=== PATIENT | male | born 1955 | race Caucasian/White ===

== ENCOUNTER 2016-07-15 18:40 | Emergency (ER) | payer MEDICARE, OTHER ==
[~2016-07-15] VITALS: Ht 177.8 cm; Wt 81.8 kg
[~2016-07-15 18:40] MED LIST: CLOP75TA14 PO; LISI20TA PO; METO50TA PO; SMV40T PO; [UNRECOGNIZED DRUG - CODE] PO
[2016-07-15 18:47] VITALS: BP 140/92; PULSE 118; RESP 15; O2SAT 95
--- NOTE | 2016-07-15 18:50 | ED.REPORT ---
HPI-General Illness Date of Service Jul 15, 2016 ED Provider: Binh Deluca MD A 61 year old male with a history of MT, CAD s/p stent placement, hypertension and hyperlipidemia presents to the ED complaining of a fever that began 2 weeks ago. Associated symptoms include weakness, fatigue, diaphoresis, chills, bilateral ear pressure, sinus pressure, mild cough, swollen lymphs,neck pain and mild back pain. His symptoms have been intermittent since onset. Patient was seen at Urgent Care earlier this afternoon and was sent to the ED with concern for influenza. He is unsure whether he has lost any weight. He denies any rash, nausea, vomiting, testicular pain, penile discharge or abdominal pain. Patient has chronic headaches and denies any change in baseline. He denies any recent travel and does not recall having been tested for HIV. He denies any previous episodes of jaundice. No prior injection drug use overseas travel or insect bites. Remote history of incarceration. Remote history of head trauma. Nursing Notes Stated Complaint: COLD SYMPTONS Chief Complaint: FLU/Cold Symptoms Nursing Notes Reviewed: Yes Allergies: Coded Allergies: No Known Allergies (Verified , 07/15/16) Scheduled Aspirin (Aspirin) 81 Mg Tablet 81 MG PO DAILY Lisinopril-Expunged Drug, Do Not Renew! (Lisinopril-Expunged Drug, Do Not Renew! ) 20 Mg Tablet 20 MG PO DAILY Metoprolol Tart-Expunged Drug, Do Not Renew! (Metoprolol Tart-Expunged Drug, Do Not Renew!) 50 Mg Tablet 50 MG PO DAILY General Time Seen by MD: 18:48 Chief Complaint Fever Hx Obtained From: Patient Arrived By: Walk-in Sudden in Onset?: No Onset Occurred: More than a week ago... (2 weeks) Symptom Duration: Since onset Severity: Current: No pain currently Associated with: Reports: Cough, Diaphoresis, Fever, Neck pain, Weakness, Denies: Abdominal pain Additional Notes: Swollen lymphs Sinus and ear pressure Pertinent Negative: Pt denies other symptoms Recent Healthcare: No recent hospitalization, Recent doctor visit (Seen at Urgent Care prior to arrival ) Past Medical History Past Medical History Notes: PCP: Romana Gardner MD Past Medical History [place] (2007) Chronic neck and back pain Chronic headaches Reports: Coronary artery disease, Hyperlipidemia, Hypertension Past Surgical History Stent placement Blood transfusion Smoking History Light Tobacco Smoker Social History Drug Use: THC Other Social History: , Local resident Occupation Previous Solar Consultant Currently student at [employer] Ambulatory Status Independent Review of Systems Full Review of Systems Constitutional: Reports: Chills, Fatigue, Fever, Weakness - generalized Ears / Nose / Throat: Reports: Earache bilateral (Ear pressure ), Sinus problem (Sinus pressure ) Respiratory: Reports: Non-productive cough, Denies: Shortness of breath Cardiovascular: Denies: Chest pain GI: Denies: Abdominal pain, Nausea, Vomiting Male: Denies Penile discharge, Denies Testicular pain Musculoskeletal: Reports: Back pain (mild current back pain; chronic ) Neurologic: Reports: Headache (chronic ), Denies: Change LOC Complete sys rev & neg: except as marked. Physical Exam Vital Signs Vital Signs Date Time Temp Pulse Resp B/P Pulse Ox O2 Delivery O2 Flow Rate FiO2 07/15/16 18:47 39.0 118 15 140/92 95 Room Air Initial VS: Reviewed Extremities: Vascular intact, Neuro intact, No swelling, No tenderness Neurologic: Alert, Oriented, Nonfocal Psychiatric: Mood/affect normal, Behavior normal, Normal thought content General/Constitutional: Awake, Alert Head / Eyes: Atraumatic, Normocephalic, PERRL ENT: Atraumatic, Airway patent, Ext aud canal NL Right Ear / Mastoid: Positive: Tympanic memb retracted ENT: Mastoid non tender No tenderness to facial percussion Ear canal non tender Numerous teeth pulled; no active decay Left TM clear Neck: Atraumatic, Supple NECK: Thyroid enlarged Cardiovascular: Heart rate NL, Regular rhythm, Heart sounds NL, No gallop, No murmurs, No rubs CARDIO: No splinter hemorrhages Abdomen: Atraumatic, Soft, Non-tender, BS normoactive Organomegaly / Mass / Hernia: Negative: Hepatomegaly Back: Atraumatic, Inspection NL, No midline vertebral tend, No CVA tenderness Adenopathy: Positive: Anterior cervical bilat, Axillary adenopathy bilat, Inguinal adenopathy bilat Interpretation & Diagnostics CT SINUSES w/o contrast Read by Radiology IMPRESSION: No evidence for acute or chronic sinusitis. Right to left nasal septal deviation. Dictated by: Bin Robert M.D. on 07/15/2016 at 21:04 Lab Results Interpretation Result Diagram: 07/15/16190907/15/161909 Test 07/15/16 19:10 07/15/16 20:21 07/15/16 22:15 White Blood Count 11.2th/mm3 (3.8-10.1) Red Blood Count 4.52mil/mm3 (4.40-5.80) Hemoglobin 13.3g/dL (13.8-17.2) Hematocrit 41.7% (41.0-50.0) Mean Corpuscular Volume 92.3fL (81-100) Mean Corpuscular Hemoglobin 29.4pg (27.0-35.0) Mean Corpuscular Hemoglobin Concent 31.9% (32.0-37.0) Red Cell Distribution Width 12.3% (12.3-15.4) Platelet Count 444bil/L (150-400) Neutrophils (%) (Auto) 69.2% (40-74) Lymphocytes (%) (Auto) 18.0% (14-46) Monocytes (%) (Auto) 12.0% (4-12) Eosinophils (%) (Auto) 0.3% (0-5) Basophils (%) (Auto) 0.2% (0-3) Erythrocyte Sedimentation Rate 66mm/hr (0-30) Sodium Level 137mEq/L (134-144) Potassium Level 4.4mEq/L (3.5-5.2) Chloride Level 95mEq/L (97-108) Carbon Dioxide Level 26mmol/L (18-29) Blood Urea Nitrogen 23mg/dL (8-27) Creatinine 1.27mg/dL (0.76-1.27) Estimat Glomerular Filtration Rate 61mL/min (>59) Glucose Level 129mg/dL (60-99) Calcium Level 10.3mg/dL (8.5-10.1) Magnesium Level 2.0mg/dL (1.6-2.6) Total Bilirubin 0.7mg/dL (0.0-1.2) Aspartate Amino Transf (AST/SGOT) 49U/L (0-50) Alanine Aminotransferase (ALT/SGPT) 59U/L (0-44) Alkaline Phosphatase 95U/L (25-160) C-Reactive Protein 14.3mg/dL (0.0-0.5) Total Protein 8.1g/dL (6.4-8.4) Albumin 3.9g/dL (3.4-5.0) Procalcitonin 0.11ng/mL (0.00-0.08) Thyroid Stimulating Hormone (TSH) 1.860uIU/mL (0.450-4.500) Hold Estrella Top Tube Received (Received) Urine Color Dark yellow (YELLOW) Urine Appearance Clear (CLEAR,HAZY) Urine pH 5.5 (5.0-8.0) Urine Specific Aspen 1.025 (1.003-1.035) Urine Protein Tracemg/dL (NEG,TRACE) Urine Glucose (UA) Negativemg/dL (NEGATIVE) Urine Ketones Tracemg/dL (NEGATIVE) Urine Occult Blood Negative (NEGATIVE) Urine Nitrite Negative (NEGATIVE) Urine Bilirubin Negative (NEGATIVE) Urine Urobilinogen 2.0mg/dL (NORMAL) Urine Leukocyte Esterase Trace (NEGATIVE) Urine RBC 0-2/hpf (0-2) Urine WBC 0-5/hpf (0-5) Urine Epithelial Cells None/hpf (NONE-MOD) Urine Crystals None seen (NONE SEEN) Urine Bacteria Few/hpf (NONE-FEW) Urine Hyaline Casts None/lpf (NONE) Urine Granular Casts None seen (NONE SEEN) Urine Waxy Casts None seen (NONE SEEN) Urine Red Blood Cell Casts None seen (NONE SEEN) Urine White Blood Cell Casts None seen (NONE SEEN) Urine Mucus Present (None Seen) Urine Trichomonas None seen (NONE SEEN) Urine Yeast None (NONE SEEN) Urinalysis Comment None Urine Culture Reflexed Indicated X-Ray Chest Interpretation Chest Xray Interpretation: IMPRESSION: No acute cardiopulmonary disease. Dictated by: Bin Robert M.D. on 07/15/2016 at 18:58 Interpretation / Wet Read by: Interpret - Radiologist CT Head Interpretation IMPRESSION: 1. No acute intracranial abnormalities. 2. Right frontal pole encephalomalacia, consistent with remote traumatic or ischemic insult. 3. Mild periventricular white matter chronic small vessel ischemic change. Dictated by: Bin Robert M.D. on 07/15/2016 at 21:02 Study: Head CT no contrast Interpretation / Wet Read by: Interpret - Radiologist Re-Eval/Medical Decision Time of Eval: 22:40 Patient Status: Condition improved Re-Evaluation/Progress Note: Patient is rechecked. He is informed of his CT results and the intended treatment plan. All of the patient's questions are addresssed. He understands and agrees with the plan to discharge. Consultation : Referral / Consult Name: Mikey Galvan MD Call Returned at: 20:52 Note: Infectious Disease Specialist: Recommends additional labs and clinic follow-up Counseled Regarding: Diagnosis, Lab results, Need for follow-up, When/why to return to ED Discharge & Departure Primary Impression: Fever Fever type: unspecified Qualified Code: R50.9 - Fever, unspecified Disposition: Home Discharge Condition All VS Reviewed: Yes Condition: Stable Patient Instructions: Fever in Adults (ED) Additional Instructions: Emergency Department evaluation included interview, examination, labs including blood cultures and chest x-ray and discussion with an infectious disease specialist. We do not have a source for your fever. It is hoped that blood cultures will be helpful. Antibiotic treatment will not be initiated today as we do not have a source. Call Dr. Galvan's office on Monday to be seen next week. We will call you if blood cultures are positive. If he would experience a significant change for the worse with increasing weakness and shortness of breath chest pain vomiting or other new symptoms return immediately to the emergency department. Referrals: Romana Gardner MD, Mark MD Scribe Attestation Portions of this note were transcribed by Kirk Lindquist. I, Dr. Deluca personally performed the history, physical exam and medical decision-making; I reviewed and confirmed the accuracy of the information in the transcribed note. Signed by: Danny Laws, 07/15/16 [id number]. copies to: Mikey Galvan MD, Donald L MD Jul 15, 2016 18:50 KIRK LINDQUIST Jul 15, 2016 19:10
[2016-07-15] MEDS ORDERED: ASPI-973 PO (18:54)
--- NOTE | 2016-07-15 19:04 | DRSVH ---
PROCEDURE: X-RAY CHEST, TWO VIEWS ([id number]) INDICATIONS: 61 year-old male with fever. TECHNIQUE: 2 views of the chest were acquired. COMPARISON: [facility], CR, CHEST 1VW (PORTABLE), 03/06/2011, 0:22. [facility], CR, CHEST 1VW (PORTABLE), 07/03/2007, 22:57. FINDINGS: Surgical changes and devices: Patient is status post coronary artery bypass grafting. Lungs and pleura: No pleural effusions or pneumothorax. Lungs are clear. Mediastinum: Mediastinal contours are normal. Heart size is normal. Bones and chest wall: No suspicious bony abnormalities. Soft tissues appear unremarkable. IMPRESSION: No acute cardiopulmonary disease. Dictated by: Bin Robert M.D. on 07/15/2016 at 18:58 Approved by: Bin Robert M.D. on 07/15/2016 at 18:58
[2016-07-15 19:25] LABS: BASOPHILS % (AUTO) 0.2 % (0-3); EOSINOPHILS % (AUTO) 0.3 % (0-5); Mean Corpuscular Hemoglobin 29.4 pg (27.0-35.0); Mean Corpuscular Volume 92.3 fL (81-100); NEUTROPHILS % (AUTO) 69.2 % (40-74); Platelet Count 444 bil/L (150-400)
[2016-07-15 20:43] LABS: APPEARANCE,URINE CLEAR (CLEAR,HAZY); COLOR,URINE DARK YELLOW (YELLOW); OCCULT BLOOD,URINE NEGATIVE (NEGATIVE); PH,URINE 5.5 (5.0-8.0)
--- NOTE | 2016-07-15 21:10 | DRSVH ---
PROCEDURE: CT BRAIN WITHOUT CONTRAST ([id number]) INDICATIONS: 61-year-old male with remote head trauma, fevers and headache. TECHNIQUE: Noncontrast 4.5 mm thick angled axial sections acquired from the foramen magnum to the vertex, with c oronal reformats. COMPARISON: None. FINDINGS: Image quality: Excellent. CSF spaces: Basal cisterns are patent. No extra-axial fluid collections. Ventricles are normal in size and shape. Brain: No midline shift. No intracranial masses or hemorrhage. There is right frontal pole encephal omalacia. There is mild periventricular white matter chronic small vessel ischemic change. There is i ntracranial internal carotid artery atherosclerosis. Skull and face: Calvarium and visualized facial bones are intact, without suspicious lesions. Sinuses: Visualized sinuses and mastoids are clear. IMPRESSION: 1. No acute intracranial abnormalities. 2. Right frontal pole encephalomalacia, consistent with remote traumatic or ischemic insult. 3. Mild periventricular white matter chronic small vessel ischemic change. Dictated by: Bin Robert M.D. on 07/15/2016 at 21:02 Approved by: Bin Robert M.D. on 07/15/2016 at 21:04
--- NOTE | 2016-07-15 21:12 | DRSVH ---
PROCEDURE: CT SINUSES ([id number]) INDICATIONS: 61-year-old male with remote head trauma, fevers and headache. TECHNIQUE: Noncontrast 3.0 mm axial images acquired from the frontal sinuses to the mid-sella, with coronal and sagittal reformats. COMPARISON: [facility], CT, CT BRAIN WO CON, 07/15/2016, 20:51. FINDINGS: Image quality: Excellent. Maxillary Sinuses: No bony remodeling or destruction. Sinuses are clear. Ethmoid Air Cells: No bony remodeling or destruction. Sinuses are clear. Sphenoid Sinuses: No bony remodeling or destruction. Sinuses are clear. Frontal Sinuses: No bony remodeling or destruction. Sinuses are clear. Ostiomeatal Complexes: Ostiomeatal complexes are patent. No Brad cells. Miscellaneous: Visualized intra-orbital contents are normal. No kimberly bullosa or paradoxical turbi sofia curvature. There is right to left nasal septal deviation. IMPRESSION: No evidence for acute or chronic sinusitis. Right to left nasal septal deviation. Dictated by: Bin Robert M.D. on 07/15/2016 at 21:04 Approved by: Bin Robert M.D. on 07/15/2016 at 21:06
== END 2016-07-15 22:40 | disposition home or self-care (01) ==
LOC: SED 18:40
DX: R50.9 Fever, unspecified (principal); R53.1 Weakness; R53.83 Other fatigue; R61 Generalized hyperhidrosis; R05 Cough; H92.03 Otalgia, bilateral; M54.2 Cervicalgia; M54.9 Dorsalgia, unspecified; J32.9 Chronic sinusitis, unspecified; I11.9 Hypertensive heart disease without heart failure; I25.10 Atherosclerotic heart disease of native coronary artery without angina pectoris; I25.2 Old myocardial infarction; E78.5 Hyperlipidemia, unspecified; F17.200 Nicotine dependence, unspecified, uncomplicated; Z95.5 Presence of coronary angioplasty implant and graft; Z79.82 Long term (current) use of aspirin
CPT/HCPCS: 36415; 70450; 70486; 71020; 80053; 81000; 82308; 83735; 84443; 85025; 85651; 86038; 86140; 87040; 87086; 87804; 99284; G0433; G0463

== ENCOUNTER 2016-07-16 19:57 | Observation (INO) | payer MEDICARE ==
[~2016-07-16] VITALS: Ht 177.8 cm; Wt 79.3 kg
[~2016-07-16 19:57] MED LIST changes: +ASPI-973 PO; -CLOP75TA14 PO; -SMV40T PO; -[UNRECOGNIZED DRUG - CODE] PO
[2016-07-16 20:24] VITALS: BP 144/92; PULSE 103; RESP 16; O2SAT 97
--- NOTE | 2016-07-16 20:33 | ED.REPORT ---
HPI-General Illness Date of Service Jul 16, 2016 ED Provider: Binh Morgan Patient is a 61 year old male who presents to the ED s/p a follow up call from Dr. Morgan where he informed the doctor that his symptoms were not improving and he was directed to return. He has been experiencing chills, sweats, fatigue, neck pain, and weakness. See note from 07/15/16. He noted that he has daily exposure to fowl. Nursing Notes Stated Complaint: CHILLS, SORE THROAT, BACK PAIN/ DR. MORGAN Chief Complaint: General Complaint Nursing Notes Reviewed: Yes Allergies: Coded Allergies: No Known Allergies (Verified , 07/15/16) Scheduled Aspirin (Aspirin) 81 Mg Tablet 81 MG PO DAILY Lisinopril-Expunged Drug, Do Not Renew! (Lisinopril-Expunged Drug, Do Not Renew! ) 20 Mg Tablet 20 MG PO DAILY Metoprolol Tart-Expunged Drug, Do Not Renew! (Metoprolol Tart-Expunged Drug, Do Not Renew!) 50 Mg Tablet 50 MG PO DAILY General Time Seen by MD: 20:33 Chief Complaint Not feeling well Hx Obtained From: Patient Arrived By: Walk-in Recent Healthcare: Recent doctor visit Similar Sx Previous: Yes Past Medical History Past Medical History Notes: PCP: Romana Gardner MD Past Medical History [place] (2008) Chronic neck and back pain Chronic headaches Psoriasis Reports: Coronary artery disease, Hyperlipidemia, Hypertension Past Surgical History Stent placement Blood transfusion Wrist Shoulder Reports: CABG (x3) Smoking History Light Tobacco Smoker Social History Drug Use: THC Other Social History: , Local resident 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 Physical Exam Vital Signs Vital Signs Date Time Temp Pulse Resp B/P Pulse Ox O2 Delivery O2 Flow Rate FiO2 07/16/16 20:24 37.3 103 16 144/92 97 Room Air Initial VS: Reviewed General/Constitutional: Well-developed, Well-nourished Head / Eyes: Atraumatic, Normocephalic Skin: Warm, Dry Neurologic: Alert, Oriented, Nonfocal Psychiatric: Mood/affect normal, Behavior normal, Normal thought content Respiratory / Chest: Breath sounds NL, Breath sounds = bilat, No respiratory distress Cardiovascular: Heart rate NL, Regular rhythm, Heart sounds NL, No gallop, No murmurs Abdomen: Soft, Non-tender, BS normoactive Interpretation & Diagnostics Lab Results Interpretation Result Diagram: 07/16/16 2100 07/16/16 2100 Test 07/16/16 21:00 White Blood Count 9.2th/mm3 (3.8-10.1) Red Blood Count 4.10mil/mm3 (4.40-5.80) Hemoglobin 12.2g/dL (13.8-17.2) Hematocrit 37.8% (41.0-50.0) Mean Corpuscular Volume 92.2fL (81-100) Mean Corpuscular Hemoglobin 29.8pg (27.0-35.0) Mean Corpuscular Hemoglobin Concent 32.3% (32.0-37.0) Red Cell Distribution Width 12.0% (12.3-15.4) Platelet Count 391bil/L (150-400) Neutrophils (%) (Auto) 70.0% (40-74) Lymphocytes (%) (Auto) 15.5% (14-46) Monocytes (%) (Auto) 13.1% (4-12) Eosinophils (%) (Auto) 1.1% (0-5) Basophils (%) (Auto) 0.1% (0-3) Sodium Level 139mEq/L (134-144) Potassium Level 4.4mEq/L (3.5-5.2) Chloride Level 100mEq/L (97-108) Carbon Dioxide Level 26mmol/L (18-29) Blood Urea Nitrogen 25mg/dL (8-27) Creatinine 1.10mg/dL (0.76-1.27) Estimat Glomerular Filtration Rate 72mL/min (>59) Glucose Level 128mg/dL (60-99) Lactic Acid Level 1.1mmol/L (0.4-2.0) Calcium Level 9.6mg/dL (8.5-10.1) Re-Eval/Medical Decision Med Decision/Clinical Course 61-year-old male with fever of unknown origin. Fevers with present for greater than 2 weeks, the patient has been experiencing progressive fatigue during this time. Cultures from yesterday are still pending, urine culture is negative. Chest x-ray and sinus/brain imaging did not show a source. He has marked elevation in CRP, sedimentation rate and pro-calcitonin. I do believe this patient is harboring a serious infection and agree with Dr. Galvan's recommendation that he be admitted to expedite evaluation. Given the normal lactic acid and the patient's reassuring vital signs at present I am not inclined to start him on empiric antibiotics at this point. No additional sets of blood cultures were drawn tonight, patient has not been on antibiotics recently. Time of Eval: 22:45 Re-Evaluation/Progress Note: Rechecked patient. Discussed lab results and desire for admission. Patient understands and agrees with plan. All questions addressed at this time. Consultation #1: Referral / Consult Name: Marichuy Ennis DO Consulted With: Hospitalist Call Returned at: 22:54 Paint Roller Winder: Will see patient, Agrees with eval, Agrees with plan, Accepts admit Note: Discussed patient's case. Accepts admit. Consultation #2: Referral / Consult Name: Mikey Galvan MD Note: Discussed patient's case with Infectious disease specialist. Suggests admit. Counseled Regarding: Diagnosis, Lab results, Need for admission Discharge & Departure Primary Impression: Fever, unknown origin Disposition: ADMITTED TO HOSPITAL Referrals: NOPCP (PCP) Scribe Attestation Portions of this note were transcribed by Jackie Haney. I, Dr. Morgan personally performed the history, physical exam and medical decision-making; I reviewed and confirmed the accuracy of the information in the transcribed note. Signed by: Jackie Haney 07/16/16, 2256 Binh Morgan MD Jul 16, 2016 20:33 JACKIE HANEY Jul 16, 2016 20:57
[2016-07-16 21:32] LABS: BASOPHILS % (AUTO) 0.1 % (0-3); EOSINOPHILS % (AUTO) 1.1 % (0-5); MONOCYTES % (AUTO) 13.1 % (4-12); Mean Corpuscular Hemoglobin 29.8 pg (27.0-35.0); Mean Corpuscular Volume 92.2 fL (81-100); Platelet Count 391 bil/L (150-400)
[2016-07-16] MEDS ORDERED: Alum-Mag Hydrox-Simeth 30 mL Suspension PO PRN (22:55)
[2016-07-16] MEDS ORDERED: Polyethylene Glycol (PEG) 17 Gm Powder PO PRN (22:55)
[2016-07-16] MEDS ORDERED: Ondansetron 2 mg/mL 2 mL Inj IVPUSH PRN (22:55)
[2016-07-17] VITALS (7 sets, daily range): BP systolic 155–168; BP diastolic 81–89; PULSE 83–104; RESP 18–20; O2SAT 92–97
--- NOTE | 2016-07-17 01:39 | NUR ---
Admit to room 3021 @ 00:15 with flu like symptoms. Pain 7/10 back ache, vs slightly Hypertensive sbp 155/89 92p 37.3 temp 97% O2 Sat on RA. Oriented to room and poc on whiteboard.
--- NOTE | 2016-07-17 01:48 | NUR ---
Med Rec Patient is a poor historian. Med list taken home by from ED. Verified pharmacy and faxed request for medications.
--- NOTE | 2016-07-17 02:05 | PCM.HPMED ---
Subjective Date of Service Jul 17, 2016 Primary Provider: Admitting Physician: Marichuy Ennis DO Primary Care Physician: Jeanie Betts V. 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 He left in frustration yesterday, but returned because of the fever and discomfort not abating. Dr Deluca did consult with Dr Galvan of ID who recommended he be admitted to the hospital. He believes he has lost 7 or 8 lbs in the last two weeks. Brain CT, Sinus CT, and CXR were unremarkable in the ED on 07/15/16. 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 He denies any recent travel. He does smoke marijuana for his chronic pain, no other pain medication. Review of Systems: 14point ROS was obtained and is otherwise negative except as noted above. Allergies Coded Allergies: No Known Allergies (Verified , 07/15/16) Home Medications Aspirin 81mg Lisinopril 20mg daily Metoprolol 50mg daily Clopidogrel 75mg daily Simvastatin 40mg daily PMH CAD HTN HLD Chronic Pain Surgical History CABG x3 Several orthopedic surgeries Anal fissure repair Family History Father at age 62 of lung cancer, always smoked and drank heavily Mother at age 57 of unknown abdominal cancer, also smoked and drank heavily Social History Hx Alcohol Use: Yes (OCCASIONAL) Hx Substance Use: Yes (marijuana) Hx Tobacco Use: Yes (1/2 ppd) Smoking Status: Former Smoker Living Arrangement: with Family Exam Vital Signs Vital Sign - Last Date Time Temp Pulse Resp B/P Pulse Ox O2 Delivery O2 Flow Rate FiO2 07/17/16 00:08 38.1 100 18 140/89 98 Room Air Exam General: Alert, Oriented X3, Cooperative, No Acute Distress Head: Normocephalic, atraumatic. External ears normal. Eyes: PERRLA, EOMI. Anicteric sclerae. Mouth: Mouth Normal, Mucous Membranes Moist/[place] Neck: Neck supple with full range of motion, mild pain with rotation, pain with palpation of soft masses at the clavicular insertion of the SCMs bilaterally. Chest & Lungs: Clear to auscultation bilaterally with no crackles, wheezes, or rhonchi. Cardiovascular: Regular Rate/Rhythm, Normal S1, Normal S2, No Murmurs/Rubs/ Gallops Abdomen: Non-tender, Non-distended, No masses, Normoactive bowel tones, Soft Musculoskeletal: Normal Range of Motion Extremities: No cyanosis/clubbing/edema bilaterally Neurological: Grossly Neurologically Intact, Cranial Nerves 2-12 Intact, Normal Speech, Strength Normal 4/4 ext, Normal Gait, Sensation Intact, Cerebellar Function nl Finger-Nose, Cerebellar Function nl Heel-[place], Reflexes Normal Lymph: no posterior/anterior/submandibular LAD, no supraclavicular or inguinal LAD Lab and Diagnostics Labs YAZMIN, HIV pending UA normal Laboratory Tests Test 07/16/16 21:00 White Blood Count 9.2th/mm3 (3.8-10.1) Red Blood Count 4.10mil/mm3 (4.40-5.80) Hemoglobin 12.2g/dL (13.8-17.2) Hematocrit 37.8% (41.0-50.0) Mean Corpuscular Volume 92.2fL (81-100) Mean Corpuscular Hemoglobin 29.8pg (27.0-35.0) Mean Corpuscular Hemoglobin Concent 32.3% (32.0-37.0) Red Cell Distribution Width 12.0% (12.3-15.4) Platelet Count 391bil/L (150-400) Neutrophils (%) (Auto) 70.0% (40-74) Lymphocytes (%) (Auto) 15.5% (14-46) Monocytes (%) (Auto) 13.1% (4-12) Eosinophils (%) (Auto) 1.1% (0-5) Basophils (%) (Auto) 0.1% (0-3) Sodium Level 139mEq/L (134-144) Potassium Level 4.4mEq/L (3.5-5.2) Chloride Level 100mEq/L (97-108) Carbon Dioxide Level 26mmol/L (18-29) Blood Urea Nitrogen 25mg/dL (8-27) Creatinine 1.10mg/dL (0.76-1.27) Estimat Glomerular Filtration Rate 72mL/min (>59) Glucose Level 128mg/dL (60-99) Lactic Acid Level 1.1mmol/L (0.4-2.0) Calcium Level 9.6mg/dL (8.5-10.1) Microbiology 07/16/16 Blood Culture, Received Pending Result Diagram: 07/16/16 2100 07/16/16 2100 Microbiology blood cultures x4 pending X-Rays, CTs and MRIs CT head unremarkable, CT sinus unremarkable CXR without acute cardiopulmonary process Assessment & Plan 61yo man with history of CABG, CAD, HTN, HLD, 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 1. Fever of unknown origin with weight loss, normal WBC, elevated CRP, 14.3, and ESR 66. Procalcitonin is 0.11. YAZMIN and HIV are pending. This fever is perhaps secondary to an infectious process vs a neoplastic process vs an autoimmune disease: the history of poultry keeping has risk of histoplasmosis which can manifest quite variably, the normal white count and normal CXR point away from a bacterial source, his smoking and industrial exposure history could be the etiology of a neoplastic process such as Hodgkin's or non-Hodgkin's lymphoma, leukemia, and many others with cold thyroid cancer a strong possibility with masses near that area, autoimmune causes could include SLE, Cryoglobulinemia, BONILLA, PMR and others. The neck masses are lateral to the SCMs at the base, but could be thyroid related. -Request ID consult, Dr Galvan already aware of patient -CT of neck, chest, abdomen, and pelvis with contrast should be considered -NS IV at 100mls/hr -fever is mild tonight, no antipyretic 2. Hypertension, holding home medications 3. CAD/HLD, holding statin for now. Pain Evaluation: Adequate Pain Control VTE Prophylaxis: Sub-Q Heparin (Unfractionated) Resuscitation Status: DNR/DNI:Do Not Resuscitate/Intubate Limited Interventions: Medications and IV Fluid Attending Statement The patient was seen and examined together with house staff on 07/17/2016 and I agree with the history, exam and plan as outlined in the note above. Aryan Ochoa DO Jul 17, 2016 00:26 Marichuy Ennis DO Jul 17, 2016 06:07
[2016-07-17] MEDS: 0.9% Sodium Chloride 1,000 ML IV SCH ×2 (02:49→11:30)
--- NOTE | 2016-07-17 05:35 | NUR ---
Requesting foam bed provided eggcrate foam liner from , foam bed not currently available. Will notify @ [facility] to monitor available beds. Addendum: 07/17/16 at 1942 by PABLO VALENTINE RN Foam bed obtained, placed in room and ready for pt use.
[2016-07-17] MEDS ORDERED: HYDR25TA4 ORAL (07:17)
[2016-07-17] MEDS ORDERED: LISI40TA ORAL (07:17)
[2016-07-17] MEDS ORDERED: METO-274 ORAL (07:17)
[2016-07-17 08:38] LABS: BASOPHILS % (AUTO) 0.1 % (0-3); EOSINOPHILS % (AUTO) 0.6 % (0-5); MONOCYTES % (AUTO) 11.1 % (4-12); Mean Corpuscular Hemoglobin 29.8 pg (27.0-35.0); Platelet Count 400 bil/L (150-400)
--- NOTE | 2016-07-17 14:15 | DRSVH ---
PROCEDURE: CT CHEST, ABDOMEN AND PELVIS [facility] CONTRAST ([id number]) INDICATIONS: 61 year-old male with fever of unknown origin, with palpable supraclavicular lymph nodes . TECHNIQUE: After the administration of oral and intravenous contrast, 5 mm thick sections acquired from the lung apices to the symphysis. 5 mm coronal and sagittal reformats were performed, with additional 7 mm c oronal MIP reformats through the lungs. For radiation dose reduction, the following was used: autom ated exposure control, adjustment of mA and/or kV according to patient size. COMPARISON: None. FINDINGS: Image quality: Excellent. CHEST: Lungs and pleura: No acute airspace opacities. On axial image 28, a 3 mm nodule lies along the righ t minor fissure. On this same image, a 5 mm anterior left midlung nodule is present. No pleural effus ions or pneumothorax. Central and peripheral airways appear patent and normal in caliber. Mediastinum: Heart size is normal, with coronary artery atherosclerosis. No pericardial effusion. No mediastinal or hilar adenopathy by size criteria. Thoracic aorta and central pulmonary arteries a re normal in size. Esophagus is normal in caliber. No hiatal hernia. Chest wall: No axillary or supraclavicular adenopathy by size criteria. Thyroid gland is incomplete ly visualized. ABDOMEN: Solid organs: Liver and spleen are normal in size and enhancement. Gallbladder is contracted at the time of scan. Biliary system is non dilated. Pancreas enhances normally. No adrenal nodules. Kid neys demonstrate normal size and enhancement, without hydronephrosis. Peritoneum and bowel: Bowel loops demonstrate normal wall thickness and caliber. There is mild sigm oid colon diverticulosis. The appendix is unable to be visualized. No free fluid or air. Nodes and vessels: No retroperitoneal or mesenteric adenopathy by size criteria. Aorta and inferior vena cava are normal in size, with widespread coronary artery atherosclerosis. Miscellaneous: Tiny fat-containing periumbilical ventral hernia is present. PELVIS: Genitourinary: Bladder wall thickness is normal. Prostate gland is normal in size. Miscellaneous: No inguinal hernias or adenopathy. Bones: No suspicious bony lesions. No vertebral body compression fractures. IMPRESSION: 1. No imaging explanation for fevers. No pathologic lymphadenopathy in the chest, abdomen, or pelvis. 2. Mild sigmoid colon diverticulosis. 3. 2 indeterminate bilateral midlung nodules, measuring up to 5 mm on the left. If no remote outside institution chest CTs are available, consider one year followup noncontrast chest CT, following the F leischner Society criteria outlined below. Fleischner Society criteria for SOLID lung nodule followup. Nodule size (mm)Low-risk patientHigh-risk [id number] follow-up neededFollow-up at 12 mo; if no hauser e, no further follow-up>[id number] CT at 12 mo; if no change, no further follow-up needed.Initial f ollow-up CT at 6-12 mo, then 18-24 mo if no change. >6-8Initial follow-up CT at 6-12 mo, then 18-24 mo if no change. Initial follow-up CT at 3-6 mo, then 9-12 mo and 24 mo if no change. >8Follow-up CT at 3, 9, 24 mo. Or PET and/or biopsy.Same as for low-risk pts. Dictated by: Bin Robert M.D. on 07/17/2016 at 14:04 Approved by: Bin Robert M.D. on 07/17/2016 at 14:13
[2016-07-17] MEDS ORDERED: DVT Prophylaxis per Pharmacist XX SCH (17:00)
[2016-07-17] MEDS ORDERED: Lisinopril 40 Tablet PO SCH (18:30)
--- NOTE | 2016-07-17 19:42 | NUR ---
Temp Elevated temp this shift, provider notified, new order for Tylenol received.
--- NOTE | 2016-07-17 20:00 | PCM.PNMED ---
Subjective Date of Service Jul 17, 2016 Subjective Patient admitted early this morning. Fever of unknown origin -- Patient continues to spike feverr, SIRS positive, and despite unable to identified source of infection. -- Chest x-ray unremarkable, urine pristine, CBC showed mild normocytic anemia -- Patient has a 40 year history of smoking, family history of lung and GI cancer. -- Given bilateral clavicular lymph node enlargement, concern is for neoplasm, possible lymphoma -- Patient does note some abdominal discomfort. A LT mild elevated. -- CT chest abdomen and pelvis unrevealing -- Test pending HIV, hepatitis panel, Restarted home medications that includes hydrochlorothiazide, lisinopril, metoprolol. Exam Vital Signs Vital Sign - Last Date Time Temp Pulse Resp B/P Pulse Ox O2 Delivery O2 Flow Rate FiO2 07/17/16 18:28 38.8 104 20 162/87 92 Room Air Intake and Output 07/16/16 07/16/16 07/17/16 Cumulative From/Thru 15:00 23:00 07:00 07/16/16 20:24 - 07/17/16 06:31 Intake Total 694 ml 694 ml Output Total 200 ml 200 ml Balance 494 ml 494 ml Intake Oral 300 ml 300 ml IV Total 394 ml 394 ml Output Urine Total 200 ml 200 ml # Bowel Movements 0 0 Lab and Diagnostics Result Diagram: 07/17/16 0810 07/17/16 0810 Microbiology blood cultures x4 pending X-Rays, CTs and MRIs CT head unremarkable, CT sinus unremarkable CXR without acute cardiopulmonary process Assessment & Plan 61yo man with history of CABG, CAD, HTN, HLD, 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 1. Fever of unknown origin with weight loss, normal WBC, elevated CRP, 14.3, and ESR 66. Procalcitonin is 0.11. YAZMIN and HIV are pending. This fever is perhaps secondary to an infectious process vs a neoplastic process vs an autoimmune disease: the history of poultry keeping has risk of histoplasmosis which can manifest quite variably, the normal white count and normal CXR point away from a bacterial source, his smoking and industrial exposure history could be the etiology of a neoplastic process such as Hodgkin's or non-Hodgkin's lymphoma, leukemia, and many others with cold thyroid cancer a strong possibility with masses near that area, autoimmune causes could include SLE, Cryoglobulinemia, BONILLA, PMR and others. The neck masses are lateral to the SCMs at the base, but could be thyroid related. -Request ID consult, Dr Galvan already aware of patient -CT of neck, chest, abdomen, and pelvis with contrast should be considered -NS IV at 100mls/hr -fever is mild tonight, no antipyretic 2. Hypertension, holding home medications 3. CAD/HLD, holding statin for now. VTE Prophylaxis: Sub-Q Heparin (Unfractionated) VTE Mechanical Devices: Intermittant Pneumatic CD Resuscitation Status: DNR/DNI:Do Not Resuscitate/Intubate Limited Interventions: Medications and IV Fluid Attending Statement I saw Mr. Sommers with Dr. Lott today. On my exam there were 2 thyroid nodules versus lymph nodes in the neck. Otherwise his Heart, Lungs, Abdomen, Neck exams were normal. He underwent near normal Chest/Abdomen/Pelvis CT scans today. He continued to spike fevers above 38 degrees. As I was completing my shift I was informed by his nurse that he wished to leave since his CT scans were done and no other large tests were ordered yet. I asked her to remind him that Dr. Galvan from ID is going to consult on him in the morning, and to please stay, since there continues to be an active Febrile illness going on. Ifeanyi Lott,Uriah H DO Jul 17, 2016 20:00 Jay Alejandra MD Jul 17, 2016 21:12
--- NOTE | 2016-07-17 20:15 | NUR ---
AMA Pt wanted to leave AMA. Dr. Park came up to talk to pt. Pt still wanted to leave AMA even after discussing the risk. Pt signed AMA form and left the unit with family and security. tele and IV were dc'd.
--- NOTE | 2016-07-17 20:26 | PCM.PNMED ---
Subjective Date of Service Jul 17, 2016 Subjective I was paged by nurse at 1930 regarding patient stating he wished to leave hospital AMA. Nurse reported patient does not trust physicians and nothing is being done for him here and wishes to leave. I reviewed patients H&P prior to going down to patient room. Patient was very adamant that he wished to leave and began to give multiple reasons why he does not trust physicians. At one point patient described an episode with regards to some past experience where he felt very close to wanting to punch someone's teeth out. He mentioned on several occasions that he is not sleeping well here secondary to his chronic pain and uncomfortable hospital bed. He stated his BP was climbing and nothing was being done about it. He stated he had not received any of his normal home medications since being hospitalized. At that point I asked patient if there was anything I could do for him that would make him more comfortable (such as a different bed) and that would make him want to stay until tomorrow. Patient responded no and began to go into how he does not take opiate medications, and how he had open heart surgery and was given a large bottle of Percocet to take, and how he took 2 pills once and felt horrible on the medication and refused to ever take again. Patient was informed that the workup was incomplete and that we wished to determine why he was having these fevers of unknown origin and that likely some more testing would be needed. He stated he can come back for the testing. I also informed him that it would be in his best interest to establish care with a PCP. His family members who were in the room then began to say how difficult it is to get into see a PCP. Patient insisted he wished to leave. I then informed patient again that he is always free to leave. He was informed that if he did leave he is putting himself at risk of worsening his outcome up to and including . Exam Vital Signs Vital Sign - Last Date Time Temp Pulse Resp B/P Pulse Ox O2 Delivery O2 Flow Rate FiO2 07/17/16 18:28 38.8 104 20 162/87 92 Room Air Intake and Output 07/16/16 07/16/16 07/17/16 Cumulative From/Thru 15:00 23:00 07:00 07/16/16 20:24 - 07/17/16 06:31 Intake Total 694 ml 694 ml Output Total 200 ml 200 ml Balance 494 ml 494 ml Intake Oral 300 ml 300 ml IV Total 394 ml 394 ml Output Urine Total 200 ml 200 ml # Bowel Movements 0 0 Lab and Diagnostics Result Diagram: 07/17/16 0810 07/17/16 0810 Microbiology blood cultures x4 pending X-Rays, CTs and MRIs CT head unremarkable, CT sinus unremarkable CXR without acute cardiopulmonary process Assessment & Plan 61yo man with history of CABG, CAD, HTN, HLD, 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 1. Fever of unknown origin with weight loss, normal WBC, elevated CRP, 14.3, and ESR 66. Procalcitonin is 0.11. YAZMIN and HIV are pending. This fever is perhaps secondary to an infectious process vs a neoplastic process vs an autoimmune disease: the history of poultry keeping has risk of histoplasmosis which can manifest quite variably, the normal white count and normal CXR point away from a bacterial source, his smoking and industrial exposure history could be the etiology of a neoplastic process such as Hodgkin's or non-Hodgkin's lymphoma, leukemia, and many others with cold thyroid cancer a strong possibility with masses near that area, autoimmune causes could include SLE, Cryoglobulinemia, BONILLA, PMR and others. The neck masses are lateral to the SCMs at the base, but could be thyroid related. -Request ID consult, Dr Galvan already aware of patient -CT of neck, chest, abdomen, and pelvis with contrast should be considered -NS IV at 100mls/hr -fever is mild tonight, no antipyretic 2. Hypertension, holding home medications 3. CAD/HLD, holding statin for now. Disposition: Patient signed paperwork to leave AMA. VTE Prophylaxis: Sub-Q Heparin (Unfractionated) VTE Mechanical Devices: Intermittant Pneumatic CD Resuscitation Status: DNR/DNI:Do Not Resuscitate/Intubate Limited Interventions: Medications and IV Fluid Jean Park DO Jul 17, 2016 20:26
[2016-07-18 08:08] LABS: Hepatitis A Antibody IgM Negative (Negative); Hepatitis B Core Antibody IgM Negative (Negative)
[2016-07-18] MEDS ORDERED: MeTOProlol XL 50 mg ER24 Tablet PO SCH (08:30)
== END 2016-07-17 20:00 | disposition left against medical advice (07) ==
LOC: SED 19:57 → MPC 23:24
PROVIDERS: ADMIT Internal Medicine; ATTEND Internal Medicine
DX: R50.9 Fever, unspecified (principal); R63.4 Abnormal weight loss; R06.00 Dyspnea, unspecified; R22.1 Localized swelling, mass and lump, neck; I10 Essential (primary) hypertension; I25.10 Atherosclerotic heart disease of native coronary artery without angina pectoris; G89.4 Chronic pain syndrome; E78.5 Hyperlipidemia, unspecified; I25.2 Old myocardial infarction; F12.90 Cannabis use, unspecified, uncomplicated; L40.9 Psoriasis, unspecified; R51 Headache; Z57.4 Occupational exposure to toxic agents in agriculture; Z95.1 Presence of aortocoronary bypass graft; Z95.5 Presence of coronary angioplasty implant and graft; Z79.82 Long term (current) use of aspirin; Z66 Do not resuscitate
CPT/HCPCS: 36415; 71260; 74177; 80048; 80053; 82274; 83605; 85025; 86705; 86709; 87040; 87340; 87341; 99285; G0378; G0472; J1650; J7030; Q9967